=== PATIENT | female | born 1980 | race African-American/Black ===

== ENCOUNTER 2016-11-30 18:01 | Inpatient (IN) | payer OTHER ==
[~2016-11-30] VITALS: Ht 160 cm; Wt 95.3 kg
--- NOTE | 2016-11-30 19:36 | History & Physical ---
General Information and HPI MD Statement: I have seen and personally examined NILA HART and documented this H&P. The patient is a 36 year old female at [39] weeks and [1] days gestation who presented with a chief complaint of spotting]. Source of Information: patient Exam Limitations: no limitations History of Present Illness: 36yo,, 39 1/7wks, c/o spotting since this afternoon, denies any pain or other issues. pt has h/o chronic HTN, she takes labetalol 200mg AM ,100mg at bedtime. , BP WNL, however, urine protein /Cr ratio today was 1.7, rest of PIH lab normal. Prenatla care started at 20 wks, issues: 1. chronic HTN, takes labetalol 2. alpha-thalassemia trait, FOB negative 3. AMA 4. 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 Home Who Do You Live With? spouse Smoking Status: Never Smoked ETOH Use: denies use Illicit Drug Use: denies illicit drug use Review of Systems Review of Systems Constitutional: Reports: no symptoms. EENTM: Reports: no symptoms. Cardiovascular: Reports: see HPI. Respiratory: Reports: no symptoms. GI: Reports: no symptoms. Genitourinary: Reports: see HPI. Musculoskeletal: Reports: no symptoms. Skin: Reports: no symptoms. Neurological/Psychological: Reports: no symptoms. Hematologic/Endocrine: Reports: no symptoms. Immunologic/Allergic: Reports: no symptoms. All Other Systems: Reviewed and Negative Exam & Diagnostic Data Obstetric Exam Wgt Gained During : 20lbs Pelvimetry: adequate Dilation (cm): 0 Effacement (%): 50 Station: -3 Membranes: intact Fluid: unknown Fundal Height (cm): 39 Multiple Gestation? No Contractions: occasional #1 - FHR Baseline: 140 Category: 1 Estimated Weight: 3200g Presentation: vertex Patient for Induction? Yes Middleton Score Middleton Score Response Value Cervix Position: posterior 0 Cervix Consistency: medium 1 Cervix Effacement: 30-50% 1 Cervix Dilation: closed 0 Cervix Station: -3 0 Total 2 Physical Exam: general: NAD Abdomen: gravid, soft, nontender Ext: DCT (-) Labs Blood Type & Rh: O positive Antibody Screen: negative Hct/Hgb & Platelets #1: 11.7/37.9%, PLT 714000 Hct/Hgb & Platelets #2: 10.6/35.3%, PLT 208172 Rubella: immune VDRL #1: negative VDRL #2: negative HbsAg: negative HIV #1: negative HIV #2 negative 1 Hr P Group B Strep: positive Initial Ultrasound: IUP at 20 wks Anatomy Ultrasound: normal Genetic Testing: declined Assessment/Plan Assessment/Plan: 36yo, , chronic HTN, super imposed preeclampsia,IOL 1. admit pt, admission labs 2. R/B/A of misoprostol for IOL d/w pt and in detail, all questions answered, informed consent obtained. 1 st dose of misoprostol placed at 8PM 3. antibiotics prophylaxis for GBS positive status when in labor 4. will monitor closely As Ranked By This Provider Problem List: 1. 2. Preeclampsia 3. AMA (advanced maternal age) primigravida 35+ Core Measures/Miscellaneous Venous Thromboembolism VTE Risk Factors: / VTE Contraindications: No Contraindications VTE Diagnosis: No Beta Darryl Is Beta Darryl a Home Med? Yes If Yes, Was This Ordered Today? Yes Antibiotics Is Patient on Antibiotics? No Attending MD Review Statement Attending Statement Attending MD Statement: examined this patient, discussed with family, discussed w/nursing
--- NOTE | 2016-12-01 09:27 | PN- OBGYN ---
Surgical Brief Attending Note Brief Attending Note: Assumed care of patient at 0730. She is a 36 year old @39 weeks and 2 days who presented yesterday for induction of labor secondary to chronic hypertension and possible superimposed preeclampsia. The patient has a history of chronic hypertension and beginning around 24 weeks she was placed on labetalol 100 mg twice a day. This was increased to 200 mg in the morning and 100 mg in the evening. She was in the office yesterday and was referred for further evaluation secondary to 4+ protein in her urine. Upon evaluation here at the childbirth center her blood pressures were stable however her urine total protein creatinine ratio was 1.7. She is without headaches, visual changes, right upper quadrant pain. She does note a history of nausea in the mornings recently. Blood work was unremarkable. is also remarkable for advanced maternal age, GBS positive, alpha phosphatase thalassemia trait however the FOB is negative. Per Dr. Robin, her cervical exam yesterday was closed and she received 1 dose of misoprostol. Her blood pressures have remained stable overnight. VS 135/87 highest BP was DBP of 91 at 0330 this am FHTs 110-120s Cat 1 (reactive) CTX: NONE cvx: 3/50/-3/soft/post a/p 36-year-old 2 para 0 at 39 weeks and 2 days. Chronic hypertension with exacerbation of proteinuria. heart rate tracing is reassuring. Today's day 2 of her induction. Cervix is favorable this morning we'll start Pitocin. Will start penicillin for GBS prophylaxis. Epidural when necessary.
--- NOTE | 2016-12-01 16:19 | PN- OBGYN ---
Surgical Brief Attending Note Brief Attending Note: Pt without complaints. States that ctx are tolerable. RN notified me around 1 pm that a few BPs 150/90s VS: 136/80 130s-155/80-91 FHTs:130s cat 1 TOCO q 2-5 cvx 5/75/-1 a/p 39+2 w, IOL for CHTN with superimposed proteinuria. possible pre-eclampsia. BPare stable. Plan Mag sulfate if severe range BPs (160s or DBPs 90s). Continue close monitoring. AROM performed and clear fluid noted. Anticipate .
--- NOTE | 2016-12-01 18:19 | Labor & Delivery Summary ---
Delivery Summary Vaginal Delivery: Vaginal: vertex Episiotomy/Lacerations: Episiotomy/Lacerations: 2ND DEGREE Repair: 3-0 POLYSORB Anesthesia: MARCAINE Placenta: Placenta: spontanteous, normal, 3 vessel, nuchal cord (x_) Anesthesia: N20 Apgars - 1 Min: 9 Apgars - 5 Min: 9 Additional Comments: PTS MEMEBRANES RUPTURED AT 5CM . SHORTLY AFTERWARD, ENTERED ACTIVE LABOR. FOUND TO BE 10CM /0 STATION AND PUSHED. DELIVERED HEAD ROP ATRAUMATICALLY. ANT SHOULDER DELIVERED. NUCHAL CORD REDUCED. POSTERIOR SHOULDER AND REMAINDER OF DELIVERED WITHOUT DIFFICULTY. DRIED AND STIMULATED AND BULB SUCTIONED THEN PLACED ON MATERNAL ABDOMEN. CORD CLAMPED AND CUT. PLACENTA DELIVERED INTACT . 2ND DEGREE REPAIRED AFTER LOCAL ANESTHETIC.
--- NOTE | 2016-12-02 09:04 | PN- OBGYN ---
Surgical Brief Attending Note Brief Attending Note: NO COMPLAINTS. AMBULATING VOIDING, TOLERATING PAIN AND PO. +NURSING. MOD LOCHIA VSSAF 130-148/80-90 FF@U EXT: NO CALF TENDERNESS OR EDEMA Laboratory Tests 12/02/16 0740: CBC w Diff Pending, WBC Pending, RBC Pending, Hgb Pending, Hct Pending, MCV Pending, MCH Pending, RDW Pending, Plt Count Pending, MPV Pending, PUBS MCHC Pending A/P PPD1. DOING WELL. H/O IOL FOR CHTN WITH SUPERIIMPOSED PROTEINURIA. BPS STABLE. WILL RESUME LABETOLOL. ROUTINE PP CARE. PLAN CIRCUMCISION.
[2016-12-02 09:08] LABS: ABSOLUTE EOSINOPHIL COUNT 0 /CUMM (0.0-0.7); ABSOLUTE LYMPH COUNT 1.9 /CUMM (1.2-3.4); EOSINOPHIL % 0.3 % (0-5); RED BLOOD CELL CT 3.76 /CUMM (4.20-5.40)
[2016-12-02] MEDS ORDERED: IBUPROFEN800 M1 PO (09:12)
[2016-12-02 09:23] LABS: ABSOLUTE BASOPHIL COUNT 0 /CUMM (0.0-0.2); ABSOLUTE GRANULOCYTE CT 10.3 /CUMM (1.4-6.5); BASOPHIL % 0.1 % (0.0-2.0); GRANULOCYTE % 77.6 % (42.2-75.2); MEAN CORPUSCULAR HGB 22.2 PG (27.0-31.0); MEAN CORPUSCULAR HGB CONC 31.6 G/DL (33.0-37.0); MEAN CORPUSCULAR VOLUME 70.5 FL (81.0-99.0); MEAN PLATELET VOLUME 8.3 FL (7.4-10.4); PLATELET COUNT 261 /CUMM (130-400); RBC DISTRIBUTION WIDTH 13.8 % (11.5-14.5); WHITE BLOOD CELL COUNT 13.3 /CUMM (4.8-10.8)
[2016-12-02 09:24] LABS: HEMATOCRIT 26.5 % (37-47)
[2016-12-03 08:08] VITALS: BP 152/92
[2016-12-03] MEDS ORDERED: FEROCON CAPSUL1 EACH PO (10:31)
--- NOTE | 2016-12-03 10:46 | PN- OBGYN ---
Surgical Brief Attending Note Brief Attending Note: no complaints. doing well. ambulating, voiding, tolerating pain and po. + nursing. small lochia. VSSAF: 130-140s/80-90s FF@U Ext: no calf tenderness or edema Laboratory Tests 12/02/16 0740: CBC w Diff NO MAN DIFF REQ, RBC 3.76 L, MCV 70.5 L, MCH 22.2 L, RDW 13.8, MPV 8.3, Gran % 77.6 H, Lymphocytes % 14.1 L, Monocytes % 7.9, Eosinophils % 0.3, Basophils % 0.1, Absolute Granulocytes 10.3 H, Absolute Lymphocytes 1.9, Absolute Monocytes 1.0 H, Absolute Eosinophils 0, Absolute Basophils 0, PUBS MCHC 31.6 L a/p PPD1. Doing well. s/p IOL for CHTN and exacerbation of proteinuria. BPs stable. Continue labetolol. Discharge today. Routine precautions advised. Chronic anemia (alpha thal trait) with acute anemia from delivery. Plan iron replacement. Will check iron level 3 months pp. Rx sent electronically to her pharmacy.
== END 2016-12-03 11:00 | DRG 775 ==
LOC: GNO 18:01
PROVIDERS: Obstetrics & Gynecology; ADMIT Obstetrics & Gynecology
PROC: 0KQM0ZZ Repair Perineum Muscle, Open Approach (ICD-10-PCS; principal; 2016-12-01)
PROC: 3E0P7GC Introduction of Other Therapeutic Substance into Female Reproductive, Via Natural or Artificial Opening (ICD-10-PCS; principal; 2016-12-01)
PROC: 10E0XZZ Delivery of Products of Conception, External Approach (ICD-10-PCS; principal; 2016-12-01)
DX: O70.1 Second degree perineal laceration during delivery (principal); Z37.0 Single live birth; O99.824 Streptococcus B carrier state complicating childbirth; O69.81X0 Labor and delivery complicated by cord around neck, without compression, not applicable or unspecified; O14.94 Unspecified pre-eclampsia, complicating childbirth; O13.4 Gestational [pregnancy-induced] hypertension without significant proteinuria, complicating childbirth; Z3A.39 39 weeks gestation of pregnancy; O09.513 Supervision of elderly primigravida, third trimester
CPT/HCPCS: GNOP; GNOS; 88307; J1885; J7120